=== PATIENT | female | born 1955 | race Two or more races ===

== ENCOUNTER 2019-05-03 11:30 | Day surgery (SDC) | payer BC ==
[~2019-05-03] VITALS: Ht 157.5 cm; Wt 81.8 kg
[2019-05-03 12:34] VITALS: Ht 157.5 cm; Wt 81.8 kg
[2019-05-03] MEDS ORDERED: VIT D (12:45)
[2019-05-03] MEDS ORDERED: FENO200 PO (12:45)
[2019-05-03] MEDS ORDERED: PANT40TA4 PO (12:45)
[2019-05-03] MEDS ORDERED: LEVO125T7 PO (12:45)
[2019-05-03] MEDS ORDERED: GLIP5TAB13 PO (12:45)
[2019-05-03] MEDS ORDERED: METF500T24 PO (12:45)
[2019-05-03] MEDS ORDERED: CITA40TA6 PO (12:45)
[2019-05-03 13:47] VITALS: BP 150/91; PULSE 63; RESP 18
--- NOTE | 2019-05-03 14:21 | PREAC ---
Date/Time of Note Date/Time of Note DATE: 05/03/19 TIME: 14:20 Anesthesia Eval and Record Evaluation Time Pre-Procedure Interview DATE: 05/03/19 TIME: 14:20 Age 63 Sex female NPO: 8 hrs Preoperative diagnosis Dyspepsia, Hematochezia Planned procedure EGD, Colonoscopy Past Medical History Past Medical History: Includes Cardio: HTN, Dyslipidemia Endo: Diabetes, Hypothyroid Surgery & Anesthesia Issues No known issue Meds Anticoagulation: No Beta Missy within 24 hr: No Reason Beta Missy not given: Pt. not on B-Missy Reported Medications Pantoprazole* (Pantoprazole*) 40 Mg Tablet.dr, 40 MG PO DAILY, TAB 05/03/19 Citalopram Hydrobromide* (Citalopram Hydrobromide*) 40 Mg Tablet, 40 MG PO DAILY, #30 TAB 05/03/19 Metformin Hcl* (Metformin Hcl*) 500 Mg Tablet, 500 MG PO WITH MEALS, #90 TAB 05/03/19 Fenofibrate* (Fenofibrate*) 200 Mg Cap, 145 MG PO DAILY, CAP 05/03/19 Glipizide* (Glipizide*) 5 Mg Tablet, 5 MG PO DAILY, TAB 05/03/19 Levothyroxine Sodium* (Levothyroxine Sodium*) 125 Mcg Tablet, 125 MCG PO BEFORE BREAKFAST, #30 TAB 05/03/19 [Vit D] No Conflict Check 05/03/19 Meds reviewed: Yes Allergies Coded Allergies: No Known Allergy (Unverified , 05/03/19) Allergies Reviewed: Yes Labs/Studies Labs Reviewed: Reviewed by anesthesiologist test: N/A Studies: ECG (n/a), CXR (n/a) Pre-procedure Exam Last vitals Vital Signs Date Temp Pulse Resp B/P (MAP) Pulse Ox O2 O2 Flow FiO2 Time Delivery Rate 05/03/19 97.8 63 18 150/91 98 Room Air 13:47 (110) Airway: Adequate mouth opening, Adequate thyromental dist Mallampati: Mallampati II Teeth: Normal Lung: Normal Heart: Normal ASA Physical Status ASA physical status: 3 Emergency: None Planned Anesthetic General/MAC: MAC Planned Pain Management Parenteral pain med Pre-operative Attestations Prior to commencing anesthesia and surgery, the patient was re-evaluated, there was verification of: *The patient's identity *The results of appropriate recent lab work and preoperative vital signs *The above evaluation not changing prior to induction *Anesthetic plan, risk benefits, alternative and complications discussed with pa tient/family; questions answered; patient/family understands, accepts and wishes to proceed. ANGELA RIVERS MD May 03, 2019 14:21
[2019-05-03] MEDS ORDERED: PROPOFOL 60 ML ONE (14:39)
--- NOTE | 2019-05-03 14:40 | PAC ---
Date/Time of Note Date/Time of Note DATE: 05/03/19 TIME: 14:40 Post-Anesthesia Notes Post-Anesthesia Note Last documented vital signs Vital Signs Date Temp Pulse Resp B/P (MAP) Pulse Ox O2 O2 Flow FiO2 Time Delivery Rate 05/03/19 97.8 63 18 150/91 98 Room Air 14:37 (110) Activity: WNL Respiratory function: WNL Cardiovascular function: WNL Mental status: Baseline Pain reasonably controlled: Yes Hydration appropriate: Yes Nausea/Vomiting absent: Yes ANGELA RIVERS MD May 03, 2019 14:40
[2019-05-03 15:10] VITALS: BP 132/83; RESP 23
== END 2019-05-03 16:29 | disposition home or self-care (01) ==
LOC: GIL 11:30
PROVIDERS: ATTEND Internal Medicine Gastroenterology
DX: K92.1 Melena (principal); K64.4 Residual hemorrhoidal skin tags; K64.8 Other hemorrhoids; K29.50 Unspecified chronic gastritis without bleeding; K21.0 Gastro-esophageal reflux disease with esophagitis; I10 Essential (primary) hypertension; E78.5 Hyperlipidemia, unspecified; E11.9 Type 2 diabetes mellitus without complications; E03.9 Hypothyroidism, unspecified; Z79.84 Long term (current) use of oral hypoglycemic drugs
CPT/HCPCS: 43239; 45378; 82962; 88305; 88312; 88313; Z7610

== ENCOUNTER 2019-06-20 17:23 | Emergency (ER) | payer BC ==
[~2019-06-20] VITALS: Ht 160 cm; Wt 84.1 kg
[~2019-06-20 17:23] MED LIST: CITA40TA6 PO; FENO200 PO; GLIP5TAB13 PO; LEVO125T7 PO; MECL12.574 PO; METF500T24 PO; PANT40TA4 PO; VIT D
[2019-06-20 17:27] VITALS: Ht 160 cm; Wt 84.1 kg
[2019-06-20 21:44] VITALS: BP 161/79; PULSE 66; RESP 17
== END 2019-06-20 21:44 | disposition home or self-care (01) ==
LOC: FTE 17:23
DX: R42 Dizziness and giddiness (principal); R53.1 Weakness; I10 Essential (primary) hypertension; E11.9 Type 2 diabetes mellitus without complications; Z79.84 Long term (current) use of oral hypoglycemic drugs
CPT/HCPCS: 36415; 80048; 85025; 93005; 96374; J1885; J7030; Z7502; Z7610